=== PATIENT | male | born 2000 | race Caucasian/White ===

== ENCOUNTER 2022-11-07 08:10 | Emergency (ER) | payer BC ==
[2022-11-07] MEDS ORDERED: Amoxicillin/Clavulanate K 875-125 MG Tab PO ONE (08:11)
[2022-11-07 09:07] LABS: CORONAVIRUS COVID-19 NAA NEGATIVE (NEGATIVE); RESPIRATORY SYNCYTIAL VIR NAA NEGATIVE (NEGATIVE)
[2022-11-07] MEDS: Loratadine 10 MG Tab PO ONE (09:41)
[2022-11-07] MEDS: Amoxicillin/Clavulanate K 875-125 MG Tab PO ONE (09:41)
[2022-11-07] MEDS: Amoxicillin/Clavulanate K 875-125 MG Tab ONE (09:55)
== END 2022-11-07 09:49 | disposition home or self-care (01) ==
LOC: DL.ED 08:10
DX: J01.90 Acute sinusitis, unspecified (principal); Z20.822 Contact with and (suspected) exposure to COVID-19; E66.9 Obesity, unspecified; Z68.44 Body mass index [BMI] 60.0-69.9, adult
CPT/HCPCS: 0241U; 87081; 87430; 99283; 99284; A9270-GY

== ENCOUNTER 2023-07-05 01:44 | Emergency (ER) | payer BC ==
[2023-07-05] MEDS ORDERED: Sodium Chloride 0.9% 10 ML Syringe FLUSH PRN (01:55)
[2023-07-05 02:16] LABS: BASOPHILS PERCENT AUTO 0.4 % (0.0-1.0); EOSINOPHILS PERCENT AUTO 1.8 % (1.0-3.0); HEMATOCRIT 46.6 % (40.0-54.0); HEMOGLOBIN 16.8 g/dL (14.0-18.0); LYMPHOCYTES PERCENT AUTO 22.6 % (20.5-50.1); MEAN CORPUSCULAR HGB CONC 36.1 g/dL (33.0-35.0); MEAN CORPUSCULAR VOLUME 80.5 fL (80-100); NEUTROPHILS PERCENT AUTO 65.2 % (42.2-75.2); PLATELET COUNT,PLT 283 10^3/uL (150-450); RED BLOOD CELL COUNT 5.79 10^6/uL (4.6-6.2); WHITE BLOOD CELL COUNT,WBC 13.8 10^3/uL (5.0-10.0)
[2023-07-05] MEDS ORDERED: cefTRIAXone 2 GM Vial IVPUSH ONE (02:18)
[2023-07-05 02:38] LABS: A/G RATIO 1.1; ALBUMIN 4.5 g/dL (3.4-5.0); ANION GAP 14.2 mEq/L (7-13); BILIRUBIN TOTAL 1.3 mg/dL (0.2-1.0); C-REACTIVE PROTEIN 1.12 ng/dL (<=0.50); CALCIUM 8.9 mg/dL (8.5-10.1); EST CRCL DRUG DOSING (CG) 113.91 mL/min; MAGNESIUM 1.7 mg/dL (1.8-2.4); POTASSIUM,K 3.2 mmol/L (3.5-5.1); PROTEIN TOTAL,TP 8.6 g/dL (6.4-8.2)
[2023-07-05 02:45] LABS: LACTIC ACID 1.1 mmol/L (0.4-2.0)
[2023-07-05] MEDS ORDERED: Lidocaine 2% Viscous Solution 15 ML UD PO ONE (02:49)
[2023-07-05] MEDS ORDERED: Acetaminophen 500 MG Tab PO ONE (02:50)
== END 2023-07-05 03:17 | disposition home or self-care (01) ==
LOC: DL.ED 01:44
DX: K04.7 Periapical abscess without sinus (principal); K02.9 Dental caries, unspecified; E87.6 Hypokalemia; E83.42 Hypomagnesemia; I10 Essential (primary) hypertension; Z86.16 Personal history of COVID-19
CPT/HCPCS: 36415; 80053; 83605; 83690; 83735; 85025; 86140; 87040; 96374; 99283; 99283-25; A9270-GY; J0696; J3490

== ENCOUNTER 2024-07-22 06:27 | Emergency (ER) | payer BC | END 2024-07-22 08:12 | disposition home or self-care (01) | LOC: DL.ED 06:27 | DX: U07.1 COVID-19 (principal); I10 Essential (primary) hypertension | CPT/HCPCS: 87081; 87428-QW; 87430; 99283 ==

== ENCOUNTER 2025-05-18 20:18 | Emergency (ER) | payer BC ==
[2025-05-18] MEDS: Take Home: Amoxicillin 500 MG, 6 Cap Pack PO ONE (20:59)
[2025-05-18] MEDS: Ketorolac 30 MG/ML SDV IM ONE (20:59)
== END 2025-05-18 21:08 | disposition home or self-care (01) ==
LOC: DL.ED 20:18
DX: K08.89 Other specified disorders of teeth and supporting structures (principal); I10 Essential (primary) hypertension; Z86.16 Personal history of COVID-19
CPT/HCPCS: 96372; 99282; A9270-GY; J1885